=== PATIENT | female | born 1995 | race Caucasian/White ===

== ENCOUNTER 2017-07-16 18:40 | Inpatient (IN) | payer SELFPAY ==
[~2017-07-16] VITALS: Ht 162.6 cm; Wt 93.7 kg
[2017-07-16 19:40] LABS: URINE APPEARANCE CLOUDY (CLEAR); URINE BILIRUBIN NEG (NEG); URINE COLOR YELLOW; URINE EPITHELIAL CELL AUTO >30 /lpf (0-5); URINE NITRITE NEG (NEG); URINE SPECIFIC GRAVITY 1.026 (1.000-1.030); UROBILINOGEN NEG (NEG)
[2017-07-16 19:44] LABS: MANUAL MICROSCOPIC REQUIRED? NO; REVIEW REQ? YES
[2017-07-16 20:08] LABS: BASO % 0.2 %; BASO ABS # 0.02 K/uL (0-0.2); COMPLETE YES; EOS % 0.3 %; HEMATOCRIT 44.7 % (37-47); IG% 0.3 %; LYMPH % 27.2 %; LYMPH ABS # 2.71 K/uL (1.2-3.4); MEAN PLATELET VOLUME 10.2 fL (7.4-10.4); MONO % 4.7 %; NEUT % 67.3 %; PLATELET COUNT 366 K/uL (130-400); RED BLOOD COUNT 4.91 M/uL (4.2-5.4); WHITE BLOOD COUNT 9.96 K/uL (4.8-10.8)
[2017-07-16 20:21] LABS: BENZODIAZEPINE, URINE NEG (NEG); COCAINE,URINE NEG (NEG); PHENCYCLIDINE, URINE NEG (NEG)
[2017-07-16 20:25] LABS: ALT/SGPT 18 U/L (12-78); BLOOD UREA NITROGEN 10 mg/dl (7-18); BUN/CREATININE RATIO 11.7 (10-20); CALCIUM 9.6 mg/dl (8.5-10.1); CARBON DIOXIDE 23 mmol/L (21-32); CHLORIDE 109 mmol/L (98-107); CREATININE 0.86 mg/dl (0.60-1.20); GLUCOSE 92 mg/dl (70-99); POTASSIUM 2.8 mmol/L (3.5-5.1); SODIUM 141 mmol/L (136-145)
[2017-07-16 20:36] LABS: ALKALINE PHOSPHATASE 90 U/L (45-117); AST/SGOT 13 U/L (15-37)
[2017-07-16] MEDS ORDERED: POTASSIUM CHLORIDE 10 MEQ TABCR PO STA (20:55)
[2017-07-16] MEDS ORDERED: SODIUM CHLORIDE 0.9% 1000ML 1,000 ML IV STA ×2 (21:20→23:41)
[2017-07-16] MEDS ORDERED: POTASSIUM CHLORIDE 10 MEQ / 100ML WTR IV STA (23:12)
[2017-07-16] MEDS ORDERED: ONDANSETRON INJ 2 MG/ML 2 ML VIAL IV STA (23:28)
[2017-07-17] MEDS ORDERED: MAGNESIUM HYDROXIDE SUSP 30 ML UDC PO PRN (00:30)
[2017-07-17] MEDS ORDERED: ONDANSETRON INJ 2 MG/ML 2 ML VIAL IV PRN (00:30)
[2017-07-17] MEDS ORDERED: POLYETHYLENE (MIRALAX) 17 GM PACK PO PRN (00:30)
[2017-07-17] MEDS ORDERED: ALUMINUM/MAGNESIUM/SIMETH (MAALOX MAX) 30 ML UDC PO PRN (00:30)
--- NOTE | 2017-07-17 01:21 | EMERGENCY ROOM VISIT NOTE ---
History Report prepared by Geovanna: Khanh Muñoz Under the Supervision of: Dr. Bhavik Huynh M.D. First contact with patient: 18:47 Chief Complaint: OVERDOSE (INTENTIONAL) Stated Complaint: MHID History of Present Illness The patient is a 21 year old female who presents to the Emergency Room after an intentional overdose that occurred 1.5 hours ago. Case management states the patient's friend called the police. They report the patient admits to taking a large amount of medication in hopes she killed herself. The patient notes she has tried to kill herself before. She states she took half a bottle of store brand Excedrin. The patient reports she took a few pills at a time, and it occurred about 1.5 hours ago. She notes she has been depressed and said there is no particular trigger. The patient states she is not taking depression medication, and she does not have a psychiatrist. She reports she went to a grade school counselor last time she had ideations, but it did not help her. The patient notes this is the first time she has been to the hospital for her symptoms. She states she has been experiencing abdominal cramping, but she thought it was GERD from the marinara sauce she ate. 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 She notes her allergies have been acting up, and she is experiencing premenstrual symptoms. The patient states she has arthritis in her ankle and weak joints. Pt denies LOC, headache, visual changes, neck pain, chest pain, breathing difficulties, nausea, vomiting, abdominal pain, back pain, numbness, weakness, open wounds, active bleeding, or other complaints. Source of History: patient Onset: 1.5 hours ago Position: other (global) Quality: other (overdose) Timing: constant Associated Symptoms: + abdominal pain Review of Systems See HPI for pertinent positives and negatives. A total of ten systems were reviewed and were otherwise negative. Past Medical & Surgical Medical Problems: (1) Arthritis (2) Tylenol overdose Family History FH: arthritis Social History Smoking Status: Unknown if Ever Smoked Housing Status: lives with roommate Occupation Status: [employer] student Current/Historical Medications No Active Prescriptions or Reported Meds Allergies Coded Allergies: No Known Allergies (Unverified , 07/16/17) Physical Exam Vital Signs Date Time Temp Pulse Resp B/P (MAP) Pulse Ox O2 Delivery O2 Flow Rate FiO2 07/17/17 00:30 97 17 96 07/17/17 00:24 107 07/17/17 00:15 115 21 100 07/17/17 00:01 115/73 07/17/17 00:00 100 18 07/16/17 23:45 100 26 100 07/16/17 23:38 113/77 07/16/17 23:30 103 18 07/16/17 23:15 124 20 07/16/17 23:00 127 27 07/16/17 22:44 101 18 119/82 97 Room Air 07/16/17 20:28 109 07/16/17 20:12 107 18 120/83 100 Room Air 07/16/17 18:58 37.2 101 18 149/90 99 Room Air Physical Exam GENERAL: Awake, alert, well appearing, no distress HENT: Normocephalic, atraumatic. TM's normal. Oropharynx unremarkable. EYES: PERRL. EOMI. Normal conjunctiva. Sclera non-icteric. NECK: Supple. No nuchal rigidity. FROM. No JVD or bruit. RESPIRATORY: CTA CARDIAC: RRR. No murmur. ABDOMEN: Soft, non distended. No tenderness to palpation. No rebound or guarding. No masses. MUSCULOSKELETAL: Unremarkable. No edema. No discoloration. Gross motor strength symmetric. NEURO: Cranial nerves 2-12 grossly intact. Normal sensorium. No sensory or motor deficits noted. Speech normal. No pronator drift. SKIN: No rash or jaundice noted. LYMPH: No adenopathy. PSYCH: Depressed mood. Flat affect. Positive suicidal ideation. No homicidal ideation, hallucinations, or delusions. Medical Decision & Procedures Laboratory Results 07/16/17 19:54 Red Blood Count 4.91, Mean Corpuscular Volume 91.0, Mean Corpuscular Hemoglobin 31.0, Mean Corpuscular Hemoglobin Concent 34.0, Mean Platelet Volume 10.2, Neutrophils (%) (Auto) 67.3, Lymphocytes (%) (Auto) 27.2, Monocytes (%) (Auto) 4.7, Eosinophils (%) (Auto) 0.3, Basophils (%) (Auto) 0.2, Neutrophils # (Auto) 6.70, Lymphocytes # (Auto) 2.71, Monocytes # (Auto) 0.47, Eosinophils # (Auto) 0.03, Basophils # (Auto) 0.02 07/16/17 19:54 Test 07/16/17 18:50 07/16/17 19:54 07/16/17 22:03 07/17/17 00:29 Urine Color YELLOW Urine Appearance CLOUDY (CLEAR) Urine pH 7.0 (4.5-7.5) Urine Specific [place] 1.026 (1.000-1.030) Urine Protein NEG (NEG) Urine Glucose (UA) NEG (NEG) Urine Ketones NEG (NEG) Urine Occult Blood TRACE (NEG) Urine Nitrite NEG (NEG) Urine Bilirubin NEG (NEG) Urine Urobilinogen NEG (NEG) Urine Leukocyte Esterase LARGE (NEG) Urine WBC (Auto) >30 /hpf (0-5) Urine RBC (Auto) 0-4 /hpf (0-4) Urine Hyaline Casts (Auto) 0 /lpf (0-5) Urine Epithelial Cells (Auto) >30 /lpf (0-5) Urine Bacteria (Auto) 2+ (NEG) Urine Yeast (Auto) (NONE PRSENT) Urine Test NEG (NEG) Urine Opiates Screen NEG (NEG) Urine Methadone, Qualitative NEG (NEG) Urine Barbiturates NEG (NEG) Urine Phencyclidine (PCP) Level NEG (NEG) Ur Amphetamine/Methamphetamine NEG (NEG) MDMA (Ecstasy) Screen NEG (NEG) Urine Benzodiazepines Screen NEG (NEG) Urine Cocaine Metabolite NEG (NEG) Urine Marijuana (THC) POS (NEG) White Blood Count 9.96 K/uL (4.8-10.8) Red Blood Count 4.91 M/uL (4.2-5.4) Hemoglobin 15.2 g/dL (12.0-16.0) Hematocrit 44.7 % (37-47) Mean Corpuscular Volume 91.0 fL (80-100) Mean Corpuscular Hemoglobin 31.0 pg (25-34) Mean Corpuscular Hemoglobin Concent 34.0 g/dl (32-36) Platelet Count 366 K/uL (130-400) Mean Platelet Volume 10.2 fL (7.4-10.4) Neutrophils (%) (Auto) 67.3 % Lymphocytes (%) (Auto) 27.2 % Monocytes (%) (Auto) 4.7 % Eosinophils (%) (Auto) 0.3 % Basophils (%) (Auto) 0.2 % Neutrophils # (Auto) 6.70 K/uL (1.4-6.5) Lymphocytes # (Auto) 2.71 K/uL (1.2-3.4) Monocytes # (Auto) 0.47 K/uL (0.11-0.59) Eosinophils # (Auto) 0.03 K/uL (0-0.5) Basophils # (Auto) 0.02 K/uL (0-0.2) RDW Standard Deviation 41.3 fL (36.4-46.3) RDW Coefficient of Variation 12.4 % (11.5-14.5) Immature Granulocyte % (Auto) 0.3 % Immature Granulocyte # (Auto) 0.03 K/uL (0.00-0.02) Anion Gap 9.0 mmol/L (3-11) Est Creatinine Clear Calc Drug Dose 117.7 ml/min Estimated GFR () 113.5 Estimated GFR (Non- 97.9 BUN/Creatinine Ratio 11.7 (10-20) Calcium Level 9.6 mg/dl (8.5-10.1) Total Bilirubin 0.2 mg/dl (0.2-1) Direct Bilirubin < 0.1 mg/dl (0-0.2) Aspartate Amino Transf (AST/SGOT) 13 U/L (15-37) Alanine Aminotransferase (ALT/SGPT) 18 U/L (12-78) Alkaline Phosphatase 90 U/L (45-117) Total Protein 8.2 gm/dl (6.4-8.2) Albumin 3.7 gm/dl (3.4-5.0) Thyroid Stimulating Hormone (TSH) 1.380 uIu/ml (0.300-4.500) Ethyl Alcohol mg/dL < 3.0 mg/dl (0-3) Acetaminophen Level 47 ug/ml (10-30) Laboratory results reviewed by me Medications Administered Medications (Trade) Dose Ordered Sig/Hoang Route Start Time Stop Time Status Last Admin Dose Admin Potassium Chloride (Klor-Con M10) 20 meq NOW STAT PO 07/16/17 20:55 07/16/17 20:56 DC 07/16/17 21:08 20 MEQ Sodium Chloride 1,000 ml @ 999 mls/hr Q1H1M STAT IV 07/16/17 21:20 07/16/17 22:20 DC 07/16/17 21:20 999 MLS/HR Potassium Chloride (Kcl 10 Meq / Wtr) 10 meq NOW STAT IV 07/16/17 23:12 07/16/17 23:14 DC 07/16/17 23:38 10 MEQ Ondansetron HCl (Zofran Inj) 4 mg NOW STAT IV 07/16/17 23:28 07/16/17 23:29 DC 07/17/17 00:39 4 MG Sodium Chloride 1,000 ml @ 125 mls/hr Q8H STAT IV 07/16/17 23:41 07/17/17 07:40 07/17/17 00:06 125 MLS/HR ECG Indication: toxicologic Rate (beats per minute): 108 Rhythm: sinus tachycardia Findings: no acute ischemic change, other (Poor R-wave progression, normal interval) ED Course 1909: The patient was evaluated in room A07. A complete history and physical exam was performed. 5: Ordered Potassium Chloride 20meq PO 0: Ordered Sodium Chloride 1000 ml @ 999 mls/hr IV 2312: Ordered Potassium Chloride 10meq IV 2316: Upon reexamination, the patient was still having nausea and vomited. She states the nausea resolved after vomiting. I discussed the test results and treatment plan with her. The patient will be evaluated for further management. I discussed the patient's case with Poison Control [facility]. They suggested the patient be medically evaluated by the hospitalist. 2325: I discussed the patient's case with Dr. Davis, [facility] Hospitalist. The patient will be evaluated for further management. 2328: Ordered Ondansetron HCl 4mg IV 2341: Ordered Sodium Chloride 1000 ml @ 125 mls/hr IV Medical Decision Prior records/ancillary studies reviewed. Triage Nursing notes reviewed and agree them. The patient's history was concerning for possible psychiatric disturbance and intentional overdose. Differential diagnosis: Etiologies such as mood disorder, toxicologic, infection, hypoglycemia, electrolyte abnormalities, cardiac sources, intracerebral event, neurologic, as well as others were entertained. Physical examination: The physical examination was performed as above and was completely benign. No emergent medical pathologies were noted. ER treatment provided: Normal saline hydration Oral potassium The patient vomited. IV potassium 10 mEq IV Zofran IV normal saline hydration On reassessment the patient felt better. Diagnostic interpretation by me: The electrocardiogram was negative for pathologic change. The labs revealed an unremarkable CBC. Chemistry panel reveals hypokalemia. The patient's initial Tylenol level was mildly elevated. The 4 hour level was well below the cutoff for toxicity. The patient was very specific about her time of ingestion as she had the time documented on her text messaging. The patient's aspirin level was mildly elevated and the second check was slightly increased. Because of the hypokalemia, nausea and vomiting, and slight increase in the aspirin level the patient will need to be medically monitored for she can be medically cleared. Poison control was consulted. They recommended a bicarbonate drip if the aspirin level increases to 30. The patient was not given charcoal as she was having nausea and vomiting. Consultation: Consultation was made with the hospitalist service. The patient was evaluated in the Emergency Room for further management. Consults Time Called: 2310 Consulting Physician: Poison Control, [facility] Returned Call: [phone] I discussed the patient's case with Poison Control [facility]. They suggested the patient be medically evaluated by the hospitalist. Additional Consults: Time Called: 2317 Consulted Physician: Dr. Davis, [facility] Hospitalist Returned Call: [phone] Additional Comments: I discussed the patient's case with Dr. Davis [facility] Hospitalist. The patient will be evaluated for further management. Impression Primary Impression: Suicidal ideation Additional Impressions: Drug overdose, intentional Hypokalemia Scribe Attestation The scribe's documentation has been prepared under my direction and personally reviewed by me in its entirety. I confirm that the note above accurately reflects all work, treatment, procedures, and medical decision making performed by me. Departure Information Dispostion Being Evaluated By Hospitalist Prescriptions No Active Prescriptions or Reported Meds Patient Instructions My [facility] Problem Qualifiers
--- NOTE | 2017-07-17 01:25 | History and Physical ---
History & Physical Date & Time of Service: Jul 17, 2017 at 01:19 Chief Complaint: MHID Primary Care Physician: No Doctor, Assigned History of Present Illness Source: patient The patient is 21-year-old female who presented to the ED after an overdose of Excedrin. The patient states that she is been chronically depressed since grade school. She is currently [employer] student, and having lots of stress related to school. Last her she had very poor academic performance is currently on academic probation. 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 In addition she complains of multiple stressors back home in [place]. Her grandfather has very advanced Alzheimer's which is quite stressful to her the family. In addition her sister recently became estranged from the family and the to them previously a very close relationship, which is very distressing to the patient. Currently she lives in [place] [employer] and states she has a few friends locally, but is not essentially feel like she has a good amount of support. Dementia states that all these factors and she took approximately 20 tablets of Excedrin and that would end her life. She then called a friend who called EMS who brought her into the emergency department. She does state at this time that she does have some remorse with regards to taking the amount of tablets that she did. She is unsure who she would try this again if she were to go home. Patient denies having been formally diagnosed with any kind of mood disorder. She's never seen a psychiatrist or a therapist. States he has never been on any pharmacotherapy to manage her mood. In the ED the patient's acetaminophen and salicylate levels were measured. She does not meet criteria by nomogram standards, to receive N-acetylcysteine. Procedure has been contacted and recommend monitoring. The patient is being admitted for medical clearance in conjunction with evaluation for inpatient psychiatric management Past Medical/Surgical History Medical Problems: (1) Arthritis Status: Chronic Family History FH: arthritis Social History Smoking Status: Unknown if Ever Smoked Smokeless Tobacco Use: No Alcohol Use: occasionally Drug Use: marijuana Marital Status: single Housing status: lives with roommate Occupational Status: student Immunizations History of Influenza Vaccine: Unknown History of Tetanus Vaccine?: Unknown History of Pneumococcal: Unknown History of Hepatitis B Vaccine: Unknown Multi-Drug Resistant Organisms History of MDRO: No Allergies Coded Allergies: No Known Allergies (Unverified , 07/16/17) Home Medications No Active Prescriptions or Reported Meds Review of Systems A 10 point review of systems was negative unless stated above. Physical Exam Vital Signs Date Time Temp Pulse Resp B/P (MAP) Pulse Ox O2 Delivery O2 Flow Rate FiO2 07/17/17 00:30 97 17 96 07/17/17 00:24 107 07/17/17 00:15 115 21 100 07/17/17 00:01 115/73 07/17/17 00:00 100 18 07/16/17 23:45 100 26 100 07/16/17 23:38 113/77 07/16/17 23:30 103 18 07/16/17 23:15 124 20 07/16/17 23:00 127 27 07/16/17 22:44 101 18 119/82 97 Room Air 07/16/17 20:28 109 07/16/17 20:12 107 18 120/83 100 Room Air 07/16/17 18:58 37.2 101 18 149/90 99 Room Air General Appearance: WD/WN, + obese Head: normocephalic, atraumatic Eyes: normal inspection, EOMI ENT: hearing grossly normal, pharynx normal Neck: supple, no adenopathy, no JVD Respiratory/Chest: lungs clear, no respiratory distress Cardiovascular: regular rate, rhythm, no gallop, no murmur Abdomen/GI: normal bowel sounds, non tender, soft Back: no CVA tenderness, no muscle spasm Extremities/Musculoskelatal: no calf tenderness, no pedal edema Neurologic/Psych: alert, oriented x 3, + depressed affect (tearful) Diagnostics Laboratory Results Results Past 24 Hours Test 07/16/17 18:50 07/16/17 19:54 07/16/17 22:03 07/17/17 00:29 Range/Units Urine Color YELLOW Urine Appearance CLOUDY CLEAR Urine pH 7.0 4.5-7.5 Urine Specific [place] 1.026 1.000-1.030 Urine Protein NEG NEG Urine Glucose (UA) NEG NEG Urine Ketones NEG NEG Urine Occult Blood TRACE NEG Urine Nitrite NEG NEG Urine Bilirubin NEG NEG Urine Urobilinogen NEG NEG Urine Leukocyte Esterase LARGE NEG Urine WBC (Auto) >30 0-5 /hpf Urine RBC (Auto) 0-4 0-4 /hpf Urine Hyaline Casts (Auto) 0 0-5 /lpf Urine Epithelial Cells (Auto) >30 0-5 /lpf Urine Bacteria (Auto) 2+ NEG Urine Yeast (Auto) NONE PRSENT Urine Test NEG NEG Urine Opiates Screen NEG NEG Urine Methadone, Qualitative NEG NEG Urine Barbiturates NEG NEG Urine Phencyclidine (PCP) Level NEG NEG Ur Amphetamine/Methamphetamine NEG NEG MDMA (Ecstasy) Screen NEG NEG Urine Benzodiazepines Screen NEG NEG Urine Cocaine Metabolite NEG NEG Urine Marijuana (THC) POS NEG White Blood Count 9.96 4.8-10.8 K/uL Red Blood Count 4.91 4.2-5.4 M/uL Hemoglobin 15.2 12.0-16.0 g/dL Hematocrit 44.7 37-47 % Mean Corpuscular Volume 91.0 80-100 fL Mean Corpuscular Hemoglobin 31.0 25-34 pg Mean Corpuscular Hemoglobin Concent 34.0 32-36 g/dl Platelet Count 366 130-400 K/uL Mean Platelet Volume 10.2 7.4-10.4 fL Neutrophils (%) (Auto) 67.3 % Lymphocytes (%) (Auto) 27.2 % Monocytes (%) (Auto) 4.7 % Eosinophils (%) (Auto) 0.3 % Basophils (%) (Auto) 0.2 % Neutrophils # (Auto) 6.70 1.4-6.5 K/uL Lymphocytes # (Auto) 2.71 1.2-3.4 K/uL Monocytes # (Auto) 0.47 0.11-0.59 K/uL Eosinophils # (Auto) 0.03 0-0.5 K/uL Basophils # (Auto) 0.02 0-0.2 K/uL RDW Standard Deviation 41.3 36.4-46.3 fL RDW Coefficient of Variation 12.4 11.5-14.5 % Immature Granulocyte % (Auto) 0.3 % Immature Granulocyte # (Auto) 0.03 0.00-0.02 K/uL Sodium Level 141 136-145 mmol/L Potassium Level 2.8 3.5-5.1 mmol/L Chloride Level 109 98-107 mmol/L Carbon Dioxide Level 23 21-32 mmol/L Anion Gap 9.0 3-11 mmol/L Blood Urea Nitrogen 10 7-18 mg/dl Creatinine 0.86 0.60-1.20 mg/dl Est Creatinine Clear Calc Drug Dose 117.7 ml/min Estimated GFR () 113.5 Estimated GFR (Non- 97.9 BUN/Creatinine Ratio 11.7 10-20 Random Glucose 92 70-99 mg/dl Calcium Level 9.6 8.5-10.1 mg/dl Total Bilirubin 0.2 0.2-1 mg/dl Direct Bilirubin < 0.1 0-0.2 mg/dl Aspartate Amino Transf (AST/SGOT) 13 15-37 U/L Alanine Aminotransferase (ALT/SGPT) 18 12-78 U/L Alkaline Phosphatase 90 45-117 U/L Total Protein 8.2 6.4-8.2 gm/dl Albumin 3.7 3.4-5.0 gm/dl Thyroid Stimulating Hormone (TSH) 1.380 0.300-4.500 uIu/ml Salicylates Level 24.1 25.2 2.8-20 mg/dl Acetaminophen Level 60 47 10-30 ug/ml Ethyl Alcohol mg/dL < 3.0 0-3 mg/dl Impression Assessment and Plan 21-year-old female with chronic depressive disorder, and acute suicide attempt with acetaminophen/salicylate The patient is being admitted for medical management. Eventually the plan is for the patient to be medically cleared to that she can be treated in the mental health unit. She is currently here on a voluntary basis to form 302 in the chart. Our plan for her is as follows: Acetaminophen/Salicylate Overdose - Tylenol/Salicylate ingested at approximately 17:45 on 07/17/17 Acetaminophen - Below nomogram treatment threshold to start N-Acetylcysteine - Hydration with NSS + 20 KCL @ 200 ml/hr overnight Salicylate - Monitor clinically for late salicylate toxicity, which include occurrence of an anion gap acidosis - Patient's respiratory status stable at this point, which makes early salicylate poisoning unlikely - Per Poison control Check Salicylate level q 2 hours; needs Bicarb infusion if exceeds 30 Hypokalemia - 10 mEq KCl given in ED - Continue hydration overnight with NSS + 20 mEq KCl10 many cues IV KCl given in the ED - Continue hydration with normal saline +20 and he cues KCl Depression - Consult Mental Health - Patient is currently on warrant and requires medical clearance - Plan for possible admission to Mental Health Unit once Marijuana use - As noted in urine drug screen - Recommend cessation DVT Prophylaxis - SCD Knee, EVETTE Hose Code Status - Level I Full Code Disposition - Telemetry - Patient is currently admitted on a voluntary basis. The patient is waiting to be medically cleared and for possible inpatient psychiatric treatment Attending Addendum: I have physically seen and examined this patient, have directed the resident's medical activities, and agree with the H&P as noted above with the following exceptions as noted. The patient is awake, alert and oriented 3, normocephalic and atraumatic, lying in bed and in no acute distress. HEENT--PERRL, EOMI, mucous membranes and oropharynx dry. Neck--supple, no JVD or bruits, thyroid normal, trachea midline, no adenopathy. Heart--normal S1 and S2, no extra beats, no murmurs, rubs or gallops. Lungs--clear bilaterally with good air movement, no respiratory distress, no accessory muscle use. Abdomen--normal bowel sounds and soft, nontender and nondistended, no hernias or masses, no organomegaly and obese. Extremities--no cyanosis, clubbing or edema. There are good distal pulses b/l. Dermatologic--normal skin turgor, normal color, warm and dry, no abnormal lymph nodes, no rash. Neurologic--cranial nerves II through XII grossly intact. Rheumatologic--normal range of motion, nontender, muscles and joints. Psychiatric--depressed affect and tearful Assessment and Plan: Intentional Acetaminophen/salicylate overdose-- Admit to the telemetry unit for cardiac rhythm monitoring. Poison control does not recommend treatment with Acetadote. Check salicylate level every 2 hours, and to start bicarbonate infusion if level exceeds 30, per poison control. NSS with KCl 20 mEq at 200 ML's per hour to address mild hypokalemia and mild dehydration. Consult mental health regarding depression. Level of Care Telemetry Advanced Directives Existing Advance Directive: No Existing Living Will: No Existing Power of Forensic Locksmith: No Resuscitation Status FULL RESUSCITATION VTE Prophylaxis VTE Risk Assessment Done? Y/N: Yes Risk Level: Moderate Given or contraindicated: Treatment not indicated
[2017-07-17 02:54] VITALS: BP 122/77; PULSE 87; TEMP 36.7; O2SAT 96; Ht 162.6 cm; Wt 93.7 kg
[2017-07-17] MEDS: NSS + 20MEQ KCL 1000ML 1,000 ML IV SCH ×3 (03:06→13:13)
[2017-07-17 04:09] VITALS: BP 120/78; PULSE 96; TEMP 36.6; O2SAT 98
[2017-07-17 04:16] LABS: MEAN CELL VOLUME 90.1 fL (80-100); MEAN CORPUSCULAR HEMOGLOBIN 32.1 pg (25-34); MEAN CORPUSCULAR HGB CONC 35.6 g/dl (32-36); MEAN PLATELET VOLUME 10.2 fL (7.4-10.4); PLATELET COUNT 363 K/uL (130-400); RED BLOOD COUNT 4.33 M/uL (4.2-5.4); WHITE BLOOD COUNT 14.14 K/uL (4.8-10.8)
[2017-07-17 04:43] LABS: CALCIUM 8.6 mg/dl (8.5-10.1); CREATININE 0.68 mg/dl (0.60-1.20); POTASSIUM 3.3 mmol/L (3.5-5.1)
[2017-07-17 04:48] LABS: ALB/GLOB RATIO 0.9 (0.9-2)
[2017-07-17 08:00] VITALS: BP 111/73; PULSE 76; TEMP 36.6; O2SAT 100
[2017-07-17 12:00] VITALS: BP 127/84; PULSE 99; TEMP 36.9; O2SAT 99
--- NOTE | 2017-07-17 12:41 | Medical Student: BHU Only ---
Psychiatric Evaluation IDENTIFYING DATA: Reyna Angeles is a 21-year-old female [employer] Student who currently lives in [place]. Reyna Angeles was brought into the ED on a 302 warrant by the police. Information provided by the patient is considered to be reliable. CHIEF COMPLAINT: "I took half a bottle of Excedrin." HISTORY OF PRESENT ILLNESS: Last night, Reyna took 20 pills of Excedrin in a suicide attempt by overdose. Afterwards, she made contact with a friend and asked to be with them. However, her friend was with a [facility] vice president education, who was obligated to report Reyna's suicide attempt after being made aware of it. The police brought her into the ED on a 302 warrant. Reyna reports "being depressed her whole life" but denies any history of psychiatric treatment or therapy and therefore has no official diagnosis. When asked what triggered the overdose, Reyna described how "thing have been piling up." She reports psychosocial stress pertaining to her family. Her grandfather has dementia and her mother has to take care of him. Additionally, Reyna has a sister who she described as "trash." This sister has a son who was abusing codeine, which Reyna reported to her nephew's father. Her sister became very upset about Reyna's disclosure and has cut off all contact with the rest of her family. Additionally at school, she performed poorly last year and is currently on academic warning (status given to [employer] students who have less than a 2.0 GPA). She would like to declare her major as energy engineering but is unsure she can and feels like she is doing poorly this semester too. Risk of violence to self within the last 6 months: yes - third overdose attempt Risk of violence to others within the last 6 months: no CURRENT MEDICATIONS: Reported Home Medications Medications Dose Route/Sig Max Daily Dose Days Date Category No Active Prescriptions or Reported Medications Rx PAST PSYCHIATRIC HISTORY: Current outpatient mental health treatment: none Prior outpatient mental health treatment: met with school counselor in 7th grade but says the counselor told her to "think differently." Prior psychiatric hospitalizations: none. Prior medication trials: none Prior suicide attempts: two - attempted overdose on naproxen but said she only took "some pills" Access to weapons: does not possess guns PAST MEDICAL HISTORY: medical history: arthritis in left ankle from swimming competitively for 10 years surgical history: [for females: pregnancies, LMP, type of control] history of head injury: none history of seizure: none history of iv drug use: none ALLERGIES: NKDA FAMILY HISTORY: Mental Health: none aside from substance abuse (see below) Substance Abuse: nephew abuses codeine Suicide: none Medical history: DM - maternal grandfather, HTN - mother, colon cancer - maternal grandfather. SUBSTANCE USE HISTORY: Tobacco use hx: none Marijuana use hx: socially, reports using once every other week to month. Alcohol: socially - last drink in January PERSONAL HISTORY: Born: in [place] but was raised in [facility]. Siblings: one brother and two sisters, one of whom she described as "trash" because she is estranged from their family. Education: [employer] sophomore on academic probation. 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 She works for two hours on Thursday Relationship History: boyfriend from home - he visits every weekend. Children: none Spiritual Affiliation: mother is Muslim but Reyna is "not serious" about it Legal History: none Physical abuse history: none Emotional/psychological abuse history: none Sexual abuse history: none MENTAL STATUS EXAM: Appearance is that of a casually dressed female who appears her stated age. The patient is cooperative with the interview. Eye contact is good. Motor behavior is normal. Speech: volume, rate, and tone are all normal. Mood: "I kind of just wanna go home." Affect: congruent with mood, depressed Thought process: goal directed, linear, coherent, clear Thought content: denies SI, HI Perception: denies hallucinations Insight is estimated to be fair. Judgment is estimated to be fair. RISK ASSESSMENT: * Risk factors (select all that apply): , fall in social status ( undeclared major who is concerned about not being able to enter the energy engineering major since she is on academic probation and is not doing well in classes), lack of support network locally, and previous attempts. * Protective factors (select all that apply): Stable relationships (boyfriend comes to visit every weekend from [place]) DIAGNOSTIC IMPRESSION: Reyna is a 21 year old female who presented to the emergency room after an intentional overdose on Excedrin. She has a long-standing history of feeling depressed but has never had a formal diagnosis of major depressive disorder. She scored a 19/25 on her PHQ-9 and reports experiencing multiple vegetative symptoms of depression on more than half the days. DSM-V DIAGNOSIS: Major depressive disorder, recurrent episodes. RECOMMENDATIONS: 1. Major depressive disorder, recurrent episode a. Start on an SSRI such as Zoloft 25 mg. b. Participate in group and recreational therapy. c. Set up family meeting with boyfriend. 2. Tylenol overdose a. Suicide precautions will be maintained to help provide for patient safety while in the hospital. b. Discuss and initiate safety planning. c. Encourage disclosure to mother to utilize her as a support system and involve her in her care. 3. Aftercare Planning: a. We will make appointments with outside therapists and outpatient psychiatrists to manage her depression after discharge. Date of Service: Jul 17, 2017.
--- NOTE | 2017-07-17 13:09 | Psychiatric Consultation ---
Psychiatric Consultation Date of Service: Jul 17, 2017. Patient was seen, chart reviewed, mental status assessed. Denies SI currently but significant risk factors including prior ingestion, lack of local social supports, academic difficulties. Dx: major depressive disorder s/p Excedrin ingestion Plan: inpatient psych admit when medically cleared, discussed 201 vs 302, proposed treatment and estimated length of stay. Patient indicated she would be willing to sign 201 after initially stressing need to return to work. Discussed with Dr. Olsen. Liaison to facilitate transfer to 3 S when bed opens. 302 warrant will need dispositioned (declined) when she completes 201 later today. If patient becomes unwilling to sign, I would support 302 commitment. She remains on floor on 302 warrant at this time and should not be allowed to leave the facility AMA.
--- NOTE | 2017-07-17 14:45 | Discharge Instructions ---
Discharge Instructions Date of Service Jul 17, 2017. Admission Reason for Admission: Tylenol Overdose Discharge Discharge Diagnosis / Problem: tylenol overdose Discharge Goals Goal(s): Decrease discomfort, Improve function, Increase independence, Improve disease control, Learn about illness, Diagnostic testing, Therapeutic intervention, Prevent Disease Progression Activity Recommendations Activity Limitations: resume your previous activity Exercise/Sports Limitations: as tolerated . Instructions / Follow-Up Instructions / Follow-Up Patient to be discharged to mental health unit in [facility] No medication changes at this time Can go on regular diet Further evaluation per psychiatry team Current Hospital Diet Patient's current hospital diet: Regular Diet Discharge Diet Recommended Diet: Regular Diet Pending Studies Studies pending at discharge: no Medical Emergencies . Who to Call and When: Medical Emergencies: If at any time you feel your situation is an emergency, please call 911 immediately. . Non-Emergent Contact Non-Emergency issues call your: Primary Care Provider Call Non-Emergent contact if: you have a fever, you have any medication questions . . "Provider Documentation" section prepared by Mook Olsen. . VTE Core Measure Inpt VTE Proph given/why not?: Treatment not indicated
[2017-07-17 15:23] VITALS: BP 134/85; PULSE 98; TEMP 37.1; O2SAT 98
[2017-07-17 15:25] VITALS: BP 134/85; PULSE 98; TEMP 37.1; O2SAT 98
--- NOTE | 2017-07-17 15:39 | Discharge Summary ---
Discharge Summary Date of Service Jul 17, 2017. Discharge Summary Admission Date: Jul 17, 2017 at 00:30 Discharge Date: Jul 17, 2017 Discharge Disposition: Acute care mental health (Inpatient mental health) Principal Diagnosis: Suicide attempt, tylenol/salicylate overdose Consultations: Psychiatry Medication Reconciliation Medication Profile: No Active Prescriptions or Reported Meds Discharge Exam Review of Systems: Constitutional: + fatigue, No fever, No chills, No sweats, No weakness ENT: No hearing loss, No unusual epistaxis, No nasal symptoms, No sore throat Respiratory: No cough, No sputum, No wheezing, No shortness of breath Cardiovascular: No chest pain, No orthopnea, No PND, No edema Abdomen: No pain, No nausea, No vomiting, No diarrhea Musculoskeletal: No joint pain, No muscle pain, No swelling, No calf pain Genitourinary - Female: No dysuria, No urinary frequency, No urinary urgency , No urinary incontinence Neurologic: No memory loss, No paralysis, No weakness, No numbness/tingling Psychiatric: + depression symptoms, + substance abuse, No anhedonism, No anxiety, No insomnia Endocrine: No fatigue, No excessive thirst Integumentary: No rash, No itch Physical Exam: General Appearance: WD/WN, no apparent distress Eyes: normal inspection, PERRL, EOMI, sclerae normal Neck: supple, no adenopathy, thyroid normal, no JVD Respiratory/Chest: chest non-tender, lungs clear, normal breath sounds, no respiratory distress Cardiovascular: regular rate, rhythm, no edema, no gallop, no JVD Abdomen / GI: normal bowel sounds, non tender, soft, no organomegaly Extremities: normal inspection, no calf tenderness, normal capillary refill , no pedal edema Neurologic/Psychiatric: no motor/sensory deficits, alert, normal mood/affect , oriented x 3 Skin: normal color, warm/dry, no rash Lymphatic: no adenopathy Hospital Course 21-year-old female with chronic depressive disorder, and acute suicide attempt with acetaminophen/salicylate The patient is being admitted for medical management. Eventually the plan is for the patient to be medically cleared to that she can be treated in the mental health unit. She is currently here on a voluntary basis to form 302 in the chart. Acetaminophen/Salicylate Overdose - Tylenol/Salicylate ingested at approximately 17:45 on 07/17/17, Below nomogram treatment threshold to start N-Acetylcysteine - Tylenol levels 60 --> 47 - Salicylate levels 24--> 25--> 22 - Stable at this time for discharge to inpatient psychiatry, no active suicide ideations currently, pt will discharge to inpatient unit on voluntary basis Hypokalemia - Resolved and replaced Depression - Consult Mental Health - Patient is currently on warrant Marijuana use - As noted in urine drug screen - Recommend cessation DVT Prophylaxis - SCD Knee, EVETTE Hose Code Status - Level I Full Code Total Time Spent: Greater than 30 minutes This includes examination of the patient, discharge planning, medication reconciliation, and communication with other providers. Discharge Instructions Please refer to the electronic Patient Visit Report (Discharge Instructions) for additional information.
[2017-07-21] MEDS ORDERED: ZLF50 PO (08:38)
== END 2017-07-17 16:28 | disposition home or self-care (01) | DRG 918 ==
LOC: C.EDA 18:43 → C.2T 07-17 00:30 → ENRESERV 07-17 01:41
PROVIDERS: ADMIT Student in an Organized Health Care Education/Training Program; ATTEND Hospitalist
DX: T39.1X2A Poisoning by 4-Aminophenol derivatives, intentional self-harm, initial encounter (principal); R45.851 Suicidal ideations; E87.6 Hypokalemia; M19.90 Unspecified osteoarthritis, unspecified site; F32.9 Major depressive disorder, single episode, unspecified; F12.10 Cannabis abuse, uncomplicated

== ENCOUNTER 2017-07-17 16:32 | Inpatient (IN) | payer SELFPAY ==
[~2017-07-17] VITALS: Ht 162.6 cm; Wt 93.7 kg
[2017-07-17] MEDS ORDERED: NURSING VERBAL MED ORDER ONE (16:45)
[2017-07-17 16:53] VITALS: BP 126/82; PULSE 88; TEMP 37; BMI 35.5
[2017-07-17] MEDS ORDERED: BISMUTH SUBSALICYLATE PER ML OMNICELL CHARGE PO PRN (17:30)
[2017-07-17] MEDS ORDERED: SODIUM CHLORIDE 0.65% NA SOLN 45 ML (OCEAN) PRN (17:30)
[2017-07-17] MEDS ORDERED: hydrOXYzine HCL 25 MG TAB PO PRN ×2 (17:30)
[2017-07-17] MEDS ORDERED: ACETAMINOPHEN 325 MG TAB PO PRN (17:30)
[2017-07-17] MEDS ORDERED: ALUMINUM/MAGNESIUM SUSP 30 ML UDC PO PRN (17:30)
[2017-07-17] MEDS ORDERED: MAGNESIUM HYDROXIDE SUSP 30 ML UDC PO PRN (17:30)
--- NOTE | 2017-07-17 21:44 | Psychiatric History & Physical ---
History Date of Service Jul 17, 2017. 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 Reyna Angeles was admitted on a 201 voluntary commitment. Patient is admitted from transfer from the medical floor. The patient was brought to the ED by the police the evening prior to admission on a 302 warrant. Information provided by the patient is considered to be reliable. Chief Complaint "I really want to get to work". History of Present Illness Last night Reyna took 20 pills of Excedrin in a suicide attempt. Afterwards, she contacted a friend who happened to be with a dorm residential construction instructor who then reported the attempt to the campus police. Acetaminophen level peaked at 60 and she did not require mucomyst but she was admittedly to telemetry overnight. Reyna reports depressive symptoms since middle school but denies any regular treatment. She reports feeling stressed and overwhelmed, particularly due to family stressors. Her grandfather has dementia and her mother is his primary caregiver. Reyna also has a sister who she described as "trash." Her sister's son abuses codeine and Reyna told the boy's father. This led to her sister cutting off all contact with the rest of her family. She performed poorly last year in college and is currently on academic probation. 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 Patient scored 19 on the PHQ-9 endorsing nearly every day for multiple vegetative symptoms of depression. Past Psychiatric History Current OP Treatment: no current treatment Prior OP Treatment: therapist (7th grade, didn't find helpful) Prior Psych Hospitalizations: none Access to a Gun: No Suicide Attempts: Yes (1 prior OD on Ibuprofen in middle school, no treatment) Past Medication Trials denied Past Medical/Surgical History History of Concussion/Seizure: No (1) Tylenol overdose (2) Arthritis Allergies Allergies: Coded Allergies: No Known Allergies (Unverified , 07/16/17) Home Medications No Active Prescriptions or Reported Meds Family History FH: arthritis History of Suicide: No History of Substance Abuse: Yes (nephew as above) Psychiatric History: No Alcohol Use Alcohol Use In Past 12 Months: Yes (monthly or less; socially only; does not drink until intoxication) AUDIT Total Score: 1 Smoking Use Smoking Status: Never Smoker Substance History occasional MJ Personal History Childhood: born in [place], moved with family (bro/sis) to [facility] Education: graduated from high school, started college ([employer] sophomore) 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 Examination Physical Examination A physical exam was performed on the medical floor prior to admission to the unit by Dr. Curiel. I accept that physical and Dr. Olsen's assessment today as correct/medical clearance for the inpatient physical exam. Vital Signs Vital Signs Past 12 Hours Date Time Temp Pulse Resp B/P (MAP) Pulse Ox O2 Delivery O2 Flow Rate FiO2 07/17/17 16:53 37.0 88 18 126/82 Laboratory Results Test 07/16/17 18:50 07/16/17 19:54 07/16/17 22:03 07/17/17 00:29 Urine Color YELLOW Urine Appearance CLOUDY Urine pH 7.0 Urine Specific [place] 1.026 Urine Protein NEG Urine Glucose (UA) NEG Urine Ketones NEG Urine Occult Blood TRACE H Urine Nitrite NEG Urine Bilirubin NEG Urine Urobilinogen NEG Urine Leukocyte Esterase LARGE H Urine WBC (Auto) >30 H Urine RBC (Auto) 0-4 Urine Hyaline Casts (Auto) 0 Urine Epithelial Cells (Auto) >30 H Urine Bacteria (Auto) 2+ H Urine Yeast (Auto) Urine Test NEG Urine Opiates Screen NEG Urine Methadone, Qualitative NEG Urine Barbiturates NEG Urine Phencyclidine (PCP) Level NEG Ur Amphetamine/Methamphetamine NEG MDMA (Ecstasy) Screen NEG Urine Benzodiazepines Screen NEG Urine Cocaine Metabolite NEG Urine Marijuana (THC) POS H Urine Marijuana (THC Carboxy Acid) Pending White Blood Count 9.96 Red Blood Count 4.91 Hemoglobin 15.2 Hematocrit 44.7 Mean Corpuscular Volume 91.0 Mean Corpuscular Hemoglobin 31.0 Mean Corpuscular Hemoglobin Concent 34.0 Platelet Count 366 Mean Platelet Volume 10.2 Neutrophils (%) (Auto) 67.3 Lymphocytes (%) (Auto) 27.2 Monocytes (%) (Auto) 4.7 Eosinophils (%) (Auto) 0.3 Basophils (%) (Auto) 0.2 Neutrophils # (Auto) 6.70 H Lymphocytes # (Auto) 2.71 Monocytes # (Auto) 0.47 Eosinophils # (Auto) 0.03 Basophils # (Auto) 0.02 RDW Standard Deviation 41.3 RDW Coefficient of Variation 12.4 Immature Granulocyte % (Auto) 0.3 Immature Granulocyte # (Auto) 0.03 H Sodium Level 141 Potassium Level 2.8 L Chloride Level 109 H Carbon Dioxide Level 23 Anion Gap 9.0 Blood Urea Nitrogen 10 Creatinine 0.86 Est Creatinine Clear Calc Drug Dose 117.7 Estimated GFR () 113.5 Estimated GFR (Non- 97.9 BUN/Creatinine Ratio 11.7 Random Glucose 92 Calcium Level 9.6 Total Bilirubin 0.2 Direct Bilirubin < 0.1 Aspartate Amino Transferase (AST) 13 L Alanine Aminotransferase (ALT) 18 Alkaline Phosphatase 90 Total Protein 8.2 Albumin 3.7 Thyroid Stimulating Hormone (TSH) 1.380 Salicylates Level 24.1 H 25.2 H 22.7 H Acetaminophen Level 60 H 47 H Ethyl Alcohol mg/dL < 3.0 Test 07/17/17 04:01 White Blood Count 14.14 H Red Blood Count 4.33 Hemoglobin 13.9 Hematocrit 39.0 Mean Corpuscular Volume 90.1 Mean Corpuscular Hemoglobin 32.1 Mean Corpuscular Hemoglobin Concent 35.6 RDW Standard Deviation 40.9 RDW Coefficient of Variation 12.3 Platelet Count 363 Mean Platelet Volume 10.2 Sodium Level 138 Potassium Level 3.3 #L Chloride Level 109 H Carbon Dioxide Level 22 Anion Gap 7.0 Blood Urea Nitrogen 8 Creatinine 0.68 Est Creatinine Clear Calc Drug Dose 147.5 Estimated GFR () 147.0 Estimated GFR (Non- 126.8 BUN/Creatinine Ratio 12.0 Random Glucose 97 Calcium Level 8.6 Total Bilirubin 0.3 Aspartate Amino Transferase (AST) 11 L Alanine Aminotransferase (ALT) 22 Alkaline Phosphatase 77 Total Protein 7.3 Albumin 3.4 Globulin 3.9 Albumin/Globulin Ratio 0.9 Mental Examination During interview pt is: alert and oriented Appearance: appropriately dressed, appropriately groomed Eye contact is: fair Motor behavior is: no abnormal motor movements Speech: normal in rate, rhythm & volume Affect: depressed Mood is: depressed Thought process: goal directed, clear, coherent Thought content: reality based without delusions Suicidal thought are: denied Homicidal thoughts are: denied Hallucinations: denies auditory, denies visual Cognition: memory grossly intact, attention grossly intact, language grossly intact Intelligence estimated to be: consistent with level of education Insight: limited Judgement: limited Impression / Recommendations Bharath Orellana is a 21-year-old female with a history of untreated depression who presents s/p Excedrin OD. There is no history of dami. 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 competitively for 10 years) Needs: resume outpatient therapy, medication trial Risk Factors Assessment : Yes /single/: Yes Higher / Fall in social status: Yes Access to guns: No Substance use disorders: No Previous attempt: Yes Family history of suicide: No Previous psychiatric stay: No Protective Factors Assessment Employed: Yes Recommendations (1) Major depressive disorder, recurrent episode with anxious distress 07/17-- The patient is admitted to [facility] ([facility] inpatient mental health unit) on q 15 min checks (behavioral with suicide precautions) for safety. The patient will participate in group, recreational and milieu therapies and will be offered additional individual and family sessions as clinically appropriate. Defer SSRI start/discussion until tomorrow. CPT Code Initial Hospital Care: [id number]
[2017-07-17 23:21] VITALS: Ht 162.6 cm; Wt 93.7 kg
[2017-07-18 06:38] VITALS: BP_SYST 110; BP_SYST 125; BP_DIAS 68; BP_DIAS 81; PULSE 94; TEMP 36.9
--- NOTE | 2017-07-18 09:48 | Psychiatric Progress Notes ---
Progress Note Date of Service Jul 18, 2017. 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 Reyna Angeles was admitted on a 201 voluntary commitment. Patient is admitted from transfer from the medical floor. The patient was brought to the ED by the police the evening prior to admission on a 302 warrant. Chief Complaint "I was so depressed and stressed out, couldn't think clearly". Subjective Patient was seen & assessed interval progress reviewed with Nursing. Staff report she reported upset stomach last night, and got Maalox. Today, she states that her mood is better, which she attributes to sleeping better last night, stating she had difficulty sleeping on the medical floor. She reports good appetite, but states she does not really like the hospital food. She denies suicidal thoughts today, stating that she regrets her suicide attempt. She processes some of her stressors, including difficulties academically, and is on academic probation, and limited supports locally. She is refusing contact with her mother, stating that her mother is already stressed out and she does not want to add to it. She was thinking of telling her mother about her hospitalization when she goes home to celebrate her birthday in a few weeks , stating that she could then tell her mother that "everything's okay, I've taken care of it," and her mother wouldn't be as stressed. She has support from her boyfriend, who lives in [place], but will be visiting her this weekend, as well as her roommate and 1 friend here at [employer]. She is unwilling to consider a family meeting with her mother, but would like to have one with her boyfriend. She has never had treatment for her depression before, but has considered taking an antidepressant, and would like to start one while here. She denies any further physical effects from her overdose. Sleep Information Total Hours of Sleep: 6.75 Meal Information Percent of Dinner Consumed: 100 Mental Status Exam During interview pt is: alert and oriented, cooperative Appearance: appropriately dressed, appropriately groomed, disheveled, other ( overweight, multiple ear piercings, glasses) Eye contact is: good Motor behavior is: steady gait & station, no abnormal motor movements Speech: normal in rate, rhythm & volume Affect: depressed, constricted Mood is: other ("a little better") Thought process: goal directed, clear, coherent Thought content: reality based without delusions Suicidal thought are: denied (but admits she overdosed in a suicide attempt prior to admission) Homicidal thoughts are: denied Hallucinations: denies auditory, denies visual Cognition: memory grossly intact, attention grossly intact, language grossly intact Intelligence estimated to be: consistent with level of education Insight: limited Judgement: limited Impression Reyna is a 21-year-old female with a history of untreated depression who presents s/p intentional Excedrin OD in a suicide attempt. She has never had mental health treatment in the past, despite a history of 2 previous intentional overdoses and self injury by cutting. She would benefit from antidepressant medication, therapy, and referrals for outpatient care. She requires inpatient treatment at this time due to the risk of self-harm and suicide if discharged prematurely. Plan (1) Major depressive disorder, recurrent episode with anxious distress 07/17-- The patient is admitted to [facility] ([facility] mental [facility]) on q 15 min checks (behavioral with suicide precautions) for safety. The patient will participate in group, recreational and milieu therapies and will be offered additional individual and family sessions as clinically appropriate. Defer SSRI start/discussion until tomorrow. 07/18 -Discussed diagnosis and treatment options, including antidepressant medication , behavioral changes (focus on sleep, exercise, good nutrition, avoiding drugs and alcohol, and utilizing her support system) and therapy. She has been reluctant to try therapy as she had a bad experience with it in grade school, but is willing to consider it at this point. Discussed trial of sertraline, reviewed risks, benefits, and common side effects, and gave her an up-to-date patient handout on the medication. We'll start 25 mg tonight, as she would like to take it at bedtime as this is when she takes her oral contraceptive, and can increase to 50 mg tomorrow if tolerated well. -She is refusing to involve her mother in treatment, not wanting to stress her out. Encouraged her to reconsider this. She would like to have a meeting with her boyfriend, who is visiting today. Will ask staff to schedule a meeting with the delinquency prevention social worker for Thursday. -Will need to meet with the delinquency prevention social worker on Thursday to coordinate with the [employer], and will need referrals for outpatient therapy and psychiatric follow-up. She does not have insurance, so this may need to be through [facility]. (2) Tylenol overdose Intentional Excedrin OD in suicide attempt- treated on medical floor. 07/18 - discussed role of safety planning, and encouraged the patient to start work on this. 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) Needs: resume outpatient therapy, medication trial Risk Factors Assessment : Yes /single/: Yes Higher / Fall in social status: Yes Health problems: No Mental Health Diagnoses: Yes Substance use disorders: No Previous attempt: Yes Family history of suicide: No Previous psychiatric stay: No Protective Factors Assessment : No Responsible for young children: No Employed: Yes Stable relationships: Yes Good rapport with provider: No Data Vital Signs Last 24 Hrs: Date Time Temp Pulse Resp B/P (MAP) Pulse Ox O2 Delivery O2 Flow Rate FiO2 07/18/17 06:38 36.9 94 16 110/68 94 125/81 07/17/17 16:53 37.0 88 18 126/82 Meds Administered Last 24 Hrs: Meds Administered (Past 24Hrs) Medications (Trade) Dose Ordered Sig/Hoang Route Start Time Stop Time Status Last Admin Dose Admin Al Hydroxide/Mg Hydroxide (Maalox Susp) 30 ml Q4H PRN PO 07/17/17 17:30 08/16/17 17:29 07/17/17 18:34 30 ML
[2017-07-18] MEDS: SERTRALINE HCL 50 MG TAB PO SCH (22:18)
[2017-07-19 06:53] VITALS: BP_SYST 118; BP_SYST 121; BP_DIAS 74; BP_DIAS 79; PULSE 101; PULSE 79; TEMP 36.7
--- NOTE | 2017-07-19 07:56 | Psychiatric Progress Notes ---
Progress Note Date of Service Jul 19, 2017. 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 Reyna Angeles was admitted on a 201 voluntary commitment. Patient is admitted from transfer from the medical floor. The patient was brought to the ED by the police the evening prior to admission on a 302 warrant. Chief Complaint "A little better". Subjective Patient was seen & assessed interval progress reviewed with Nursing. She reports she is feeling more comfortable on the unit, and has been talking with peers and feels she is getting good support. She denies side effects to sertraline after one dose. Sleep was disrupted by ankle pain, which is chronic due to arthritis. Appetite is good, and denies further sequelae from OD. She denies recurrence of suicidal thoughts, and says mood has improved to an 8 or 9 out of 10. She thinks her mood has improved drastically because she is away from stressors, and is around other people who are supportive. She had a good visit from her boyfriend and a meeting was scheduled with him for tomorrow. She continues to refuse involvement of her parents. She says her roommate is "very judgmental sometimes," so sometimes she doesn't want to talk to her about her problems. Her roommate doesn't know where she is, hasn't seen her since night, and has not tried to contact her, which makes her feel bad. The one other friend she has locally has not tried to contact her either, and she is disappointed by this. She has no other local supports, and has not spoken to her parents since admission. She does not plan on contacting her parents, and wants to wait to tell them in person about her hospitalization in a few weeks. She talks at length about her interpersonal difficulties with her roommate, whom she describes as somewhat insensitive. She states that she visits with her boyfriend every weekend. We discussed the concept of a safety plan, and she was encouraged to start working on this. 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 She believes that her father was affected by his time serving in the [place] and contracted some sort of ailments that was then passed on to her and her siblings, saying that they all get odd rashes and that her siblings tested positive for Lyme disease, "even though they never had it." Sleep Information Total Hours of Sleep: 6.50 Meal Information Percent of Breakfast Consumed: 100 Percent of Lunch Consumed: 80 Percent of Dinner Consumed: 75 Mental Status Exam During interview pt is: alert and oriented, cooperative Appearance: appropriately dressed, appropriately groomed, disheveled, other ( overweight, multiple ear piercings, glasses) Eye contact is: good Motor behavior is: steady gait & station, no abnormal motor movements Speech: loud, other Affect: other (depressed, but reactive and appropriate) Mood is: other ("better") Thought process: goal directed, clear, coherent Thought content: reality based without delusions Suicidal thought are: denied (but admits she overdosed in a suicide attempt prior to admission) Homicidal thoughts are: denied Hallucinations: denies auditory, denies visual Cognition: memory grossly intact, attention grossly intact, language grossly intact Intelligence estimated to be: consistent with level of education Insight: limited Judgement: limited Impression Reyna is a 21-year-old female with a history of untreated depression who presents s/p intentional Excedrin OD in a suicide attempt. She has never had mental health treatment in the past, despite a history of 2 previous intentional overdoses and self injury by cutting. She would benefit from antidepressant medication, therapy, and referrals for outpatient care. She requires inpatient treatment at this time due to the risk of self-harm and suicide if discharged prematurely. She is refusing contact with her parents, and has no supports locally, and no outpatient providers. Plan (1) Major depressive disorder, recurrent episode with anxious distress 07/17-- The patient is admitted to [facility] ([facility] mental health [facility]) on q 15 min checks (behavioral with suicide precautions) for safety. The patient will participate in group, recreational and milieu therapies and will be offered additional individual and family sessions as clinically appropriate. Defer SSRI start/discussion until tomorrow. 07/18 -Discussed diagnosis and treatment options, including antidepressant medication , behavioral changes (focus on sleep, exercise, good nutrition, avoiding drugs and alcohol, and utilizing her support system) and therapy. She has been reluctant to try therapy as she had a bad experience with it in grade school, but is willing to consider it at this point. Discussed trial of sertraline, reviewed risks, benefits, and common side effects, and gave her an up-to-date patient handout on the medication. We'll start 25 mg tonight, as she would like to take it at bedtime as this is when she takes her oral contraceptive, and can increase to 50 mg tomorrow if tolerated well. -She is refusing to involve her mother in treatment, not wanting to stress her out. Encouraged her to reconsider this. She would like to have a meeting with her boyfriend, who is visiting today. Will ask staff to schedule a meeting with the social insurance administrator for Thursday. -Will need to meet with the social insurance administrator on Thursday to coordinate with the [facility], and will need referrals for outpatient therapy and psychiatric follow-up. She does not have insurance, so this may need to be through [facility]. 07/19 -Increase sertraline to 50 mg at bedtime tonight. -Patient continues to refuse involvement of her parents, but has a meeting scheduled with her boyfriend of the social insurance administrator for tomorrow.. -Encouraged her to work on her safety plan, including ways to cope with stress, and encouraged to involve her support network, which she has been reluctant to do. (2) Tylenol overdose Intentional Excedrin OD in suicide attempt- treated on medical floor. 07/18 - discussed role of safety planning, and encouraged the patient to start work on this. 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) Needs: resume outpatient therapy, medication trial Risk Factors Assessment : Yes /single/: Yes Higher / Fall in social status: Yes Health problems: No Mental Health Diagnoses: Yes Substance use disorders: No Previous attempt: Yes Family history of suicide: No Previous psychiatric stay: No Protective Factors Assessment : No Responsible for young children: No Employed: Yes Stable relationships: Yes Good rapport with provider: No Data Vital Signs Last 24 Hrs: Date Time Temp Pulse Resp B/P (MAP) Pulse Ox O2 Delivery O2 Flow Rate FiO2 07/19/17 06:53 36.7 79 16 118/74 101 121/79 Meds Administered Last 24 Hrs: Meds Administered (Past 24Hrs) Medications (Trade) Dose Ordered Sig/Hoang Route Start Time Stop Time Status Last Admin Dose Admin Al Hydroxide/Mg Hydroxide (Maalox Susp) 30 ml Q4H PRN PO 07/17/17 17:30 08/16/17 17:29 07/17/17 18:34 30 ML Sertraline HCl (Zoloft Tab) 25 mg Taper HS PO 07/18/17 22:00 08/16/17 21:59 07/18/17 22:18 25 MG
[2017-07-19] MEDS ORDERED: NURSING VERBAL MED ORDER ONE (18:15)
[2017-07-19] MEDS: SPRINTEC PO SCH (22:00)
[2017-07-19] MEDS: SERTRALINE HCL 50 MG TAB PO SCH (22:58)
[2017-07-20 06:53] VITALS: BP_SYST 118; BP_SYST 121; BP_DIAS 74; BP_DIAS 82; PULSE 105; PULSE 88; TEMP 36.7
--- NOTE | 2017-07-20 12:13 | Psychiatric Progress Notes ---
Progress Note Date of Service Jul 20, 2017. 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 Reyna Angeles was admitted on a 201 voluntary commitment. Patient is admitted from transfer from the medical floor. The patient was brought to the ED by the police the evening prior to admission on a 302 warrant. Chief Complaint "Pretty good". Subjective Patient was seen & assessed interval progress reviewed with Treatment Team. Staff report she is going to groups and participating. The patient reports mood is improving. She is working on her discharge plans. She called her sister and told her "a brief summary" of her hospitalization, but still has not told her mother, and continues to refuse contact with her, saying she wants to tell her "later" and doesn't want to stress her out. She feels "like a burden, don't want people to have to deal with my problems." She had a meeting with her boyfriend today, and they discussed her lack of support here, and concerns about that. She talked about her self harming, which dates back to elementary school, when she was bullied. She denies access to guns or razor blades at home. She is hoping to be able to be seen at [facility], as she doesn't have insurance so can't get providers in the community. Today, she says she was very anxious about talking to her sister last night, and is still very worried about telling her mother, saying she wants to send her a text message first, then tell her what happened, but only after she can tell her "I've taken care of it all." She admits her family all try to manage things on their own and the feeling that asking for help is weakness. She recognizes that this is part of her problem. Mood is "ok," a little lower today due to rainy weather and ankle pain. Sleep and appetite are good. Denies side effects to medication. Sleep Information Total Hours of Sleep: 6.25 Meal Information Percent of Breakfast Consumed: 90 Percent of Lunch Consumed: 50 Percent of Dinner Consumed: 75 Mental Status Exam During interview pt is: alert and oriented, cooperative Appearance: appropriately dressed, appropriately groomed, disheveled, other ( overweight, multiple ear piercings, glasses) Eye contact is: good Motor behavior is: steady gait & station, no abnormal motor movements Speech: loud Affect: other (depressed, but reactive and appropriate) Mood is: other ("okay") Thought process: goal directed, clear, coherent Thought content: reality based without delusions Suicidal thought are: denied (but admits she overdosed in a suicide attempt prior to admission) Homicidal thoughts are: denied Hallucinations: denies auditory, denies visual Cognition: memory grossly intact, attention grossly intact, language grossly intact Intelligence estimated to be: consistent with level of education Insight: limited Judgement: limited Impression Reyna is a 21-year-old female with a history of untreated depression who presents s/p intentional Excedrin OD in a suicide attempt. She has never had mental health treatment in the past, despite a history of 2 previous intentional overdoses and self injury by cutting. She would benefit from antidepressant medication, therapy, and referrals for outpatient care. She requires inpatient treatment at this time due to the risk of self-harm and suicide if discharged prematurely. She is refusing contact with her parents, and has no supports locally, and no outpatient providers. Plan (1) Major depressive disorder, recurrent episode with anxious distress 07/17-- The patient is admitted to [facility] ([facility] mental health unit) on q 15 min checks (behavioral with suicide precautions) for safety. The patient will participate in group, recreational and milieu therapies and will be offered additional individual and family sessions as clinically appropriate. Defer SSRI start/discussion until tomorrow. 07/18 -Discussed diagnosis and treatment options, including antidepressant medication , behavioral changes (focus on sleep, exercise, good nutrition, avoiding drugs and alcohol, and utilizing her support system) and therapy. She has been reluctant to try therapy as she had a bad experience with it in grade school, but is willing to consider it at this point. Discussed trial of sertraline, reviewed risks, benefits, and common side effects, and gave her an up-to-date patient handout on the medication. We'll start 25 mg tonight, as she would like to take it at bedtime as this is when she takes her oral contraceptive, and can increase to 50 mg tomorrow if tolerated well. -She is refusing to involve her mother in treatment, not wanting to stress her out. Encouraged her to reconsider this. She would like to have a meeting with her boyfriend, who is visiting today. Will ask staff to schedule a meeting with the social media specialist for Thursday. -Will need to meet with the social media specialist on Thursday to coordinate with the [facility], and will need referrals for outpatient therapy and psychiatric follow-up. She does not have insurance, so this may need to be through [facility]. 07/19 -Increase sertraline to 50 mg at bedtime tonight. -Patient continues to refuse involvement of her parents, but has a meeting scheduled with her boyfriend of the social media specialist for tomorrow.. -Encouraged her to work on her safety plan, including ways to cope with stress, and encouraged to involve her support network, which she has been reluctant to do. 07/20 -Increase sertraline to 75mg qhs to target mood and anxiety. -Family meeting held with boyfriend. Continues to refuse involvement of mother. -Coordinate with [facility], and refer to [facility] for aftercare. -Work on discharge plans/safety plan. (2) Tylenol overdose Intentional Excedrin OD in suicide attempt- treated on medical floor. 07/18 - discussed role of safety planning, and encouraged the patient to start work on this. 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) Needs: resume outpatient therapy, medication trial Risk Factors Assessment : Yes /single/: Yes Higher / Fall in social status: Yes Health problems: No Mental Health Diagnoses: Yes Substance use disorders: No Previous attempt: Yes Family history of suicide: No Previous psychiatric stay: No Hopelessness: No Smoker: No Protective Factors Assessment : No Responsible for young children: No Employed: Yes Stable relationships: Yes Supportive family: No Good rapport with provider: No Data Vital Signs Last 24 Hrs: Date Time Temp Pulse Resp B/P (MAP) Pulse Ox O2 Delivery O2 Flow Rate FiO2 07/20/17 06:53 36.7 88 16 118/74 105 121/82 Meds Administered Last 24 Hrs: Meds Administered (Past 24Hrs) Medications (Trade) Dose Ordered Sig/Hoang Route Start Time Stop Time Status Last Admin Dose Admin Sertraline HCl (Zoloft Tab) 50 mg Taper HS PO 07/18/17 22:00 08/16/17 21:59 07/19/17 22:58 50 MG Non-Formulary Medication (Non-Formulary Patient'S Own Med) 1 ea HS PO 07/19/17 22:00 08/18/17 21:59 07/19/17 22:00 1 EA
[2017-07-20] MEDS: SPRINTEC PO SCH (22:00)
[2017-07-20] MEDS ORDERED: SERTRALINE HCL 50 MG TAB PO SCH (22:00)
[2017-07-21 06:55] VITALS: BP_SYST 114; BP_DIAS 72; BP_DIAS 76; PULSE 82; PULSE 90; TEMP 36.8
[2017-07-21] MEDS ORDERED: ZLF50 PO (08:38)
[2017-07-21] MEDS ORDERED: SPR28 PO (08:39)
--- NOTE | 2017-07-21 08:54 | Discharge Instructions ---
Discharge Information Report Includes Report will include the: Discharge Instructions & Summary Admission Admission Date / Time: Jul 17, 2017 at 16:32 Reason for Admission: Major Depression Discharge Discharge Diagnosis / Problem: Major depression, Tylenol overdose Condition at Discharge: Good Discharge Goals Goal(s): Improve function, Improve disease control, Learn about illness, Therapeutic intervention, Specific goals (refer for outpatient care) Activity Recommendations Activity Limitations: per Instructions/Follow-up section . Instructions / Follow-Up Instructions / Follow-Up . SPECIAL CARE INSTRUCTIONS: 1. Follow through with your scheduled aftercare appointments. If unable to keep an appointment, please call to reschedule. 2. Take your medication only as prescribed. Medication should not be changed or stopped without the approval of your doctor. In the event of worsening symptoms or concerns about side effects, contact your doctor immediately. 3. Utilize new healthy coping skills, anger management skills, and stress management skills learned during your hospitalization. Journal feelings and process them with a support person. Identify stressors or situations that may result in relapse, deterioration or inappropriate behaviors and develop a plan to deal with those issues. 4. If your coping skills are ineffective and you are in crisis, contact your outpatient providers for direction. If unable to reach your providers, please call the CAN HELP LINE AT or go to the closest Emergency Room. 5. Avoid alcohol and un-prescribed drugs. 6. You have been provided with the Mental Health Advance Directives Pamphlet for your review. AFTERCARE APPOINTMENTS: * Please call your insurance company prior to your scheduled appointment to confirm your aftercare providers are covered. Take your insurance information to your appointments. . Discharge / Aftercare Planning Psychiatrist: Name: TERE Therapist: Name Of Therapist: TERE . Follow-Up Care Plan for Follow-Up Care: See above. Current Hospital Diet Patient's current hospital diet: Regular Diet Discharge Diet Recommended Diet: Regular Diet Procedures Procedures Performed: No Pending Studies Pending Studies at Discharge: No Medical Emergencies . Who to Call and When: Medical Emergencies: For questions or emergencies related to your hospital stay, please contact the Inpatient Behavioral Health Unit at [phone]. A document preparation specialist is on-call 04/05 for the Behavioral Health Unit for emergencies At any time you feel your situation is an emergency, you may also call 911 immediately. . Non-Emergent Contact Non-Emergency issues call your: Primary Care Provider, Psychiatrist, Therapist Past History Medical & Surgical History: (1) Arthritis Advance Directives Existing Advance Directive: No Do You Have an Existing Mental: No Existing Living Will: No Existing Power of Retail Salesworker: No Advance Directives Info Given: To Pt/S.O. Advance Directives Reason: Declines as Mental Health Visit. Discharge Summary Admission HPI Per the Admitting provider: Last night Reyna took 20 pills of Excedrin in a suicide attempt. Afterwards, she contacted a friend who happened to be with a dorm vice president of procurement who then reported the attempt to the campus police. Acetaminophen level peaked at 60 and she did not require mucomyst but she was admittedly to telemetry overnight. Reyna reports depressive symptoms since middle school but denies any regular treatment. She reports feeling stressed and overwhelmed, particularly due to family stressors. Her grandfather has dementia and her mother is his primary caregiver. Reyna also has a sister who she described as "trash." Her sister's son abuses codeine and Reyna told the boy's father. This led to her sister cutting off all contact with the rest of her family. She performed poorly last year in college and is currently on academic probation. 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 Patient scored 19 on the PHQ-9 endorsing nearly every day for multiple vegetative symptoms of depression. Admission Exam Per the Admitting provider: Please see admission H&P. Consultations None. Hospital Course (1) Major depressive disorder, recurrent episode with anxious distress 07/17-- The patient is admitted to [facility] ([facility] unit) on q 15 min checks (behavioral with suicide precautions) for safety. The patient will participate in group, recreational and milieu therapies and will be offered additional individual and family sessions as clinically appropriate. Defer SSRI start/discussion until tomorrow. 07/18 -Discussed diagnosis and treatment options, including antidepressant medication , behavioral changes (focus on sleep, exercise, good nutrition, avoiding drugs and alcohol, and utilizing her support system) and therapy. She has been reluctant to try therapy as she had a bad experience with it in grade school, but is willing to consider it at this point. Discussed trial of sertraline, reviewed risks, benefits, and common side effects, and gave her an up-to-date patient handout on the medication. We'll start 25 mg tonight, as she would like to take it at bedtime as this is when she takes her oral contraceptive, and can increase to 50 mg tomorrow if tolerated well. -She is refusing to involve her mother in treatment, not wanting to stress her out. Encouraged her to reconsider this. She would like to have a meeting with her boyfriend, who is visiting today. Will ask staff to schedule a meeting with the social worker masters for Thursday. -Will need to meet with the social worker masters on Thursday to coordinate with the [place], and will need referrals for outpatient therapy and psychiatric follow-up. She does not have insurance, so this may need to be through [facility]. 07/19 -Increase sertraline to 50 mg at bedtime tonight. -Patient continues to refuse involvement of her parents, but has a meeting scheduled with her boyfriend of the social worker masters for tomorrow.. -Encouraged her to work on her safety plan, including ways to cope with stress, and encouraged to involve her support network, which she has been reluctant to do. 07/20 -Increase sertraline to 75mg qhs to target mood and anxiety. -Family meeting held with boyfriend. Continues to refuse involvement of mother. -Coordinate with [facility], and refer to [facility] for aftercare. -Work on discharge plans/safety plan. 07/21 -Patient continues to deny suicidal thoughts, and is requesting discharge. Her boyfriend will be picking her up. He is being referred to [facility] for therapy and psychiatric follow-up, as she does not yet have insurance so cannot be referred to the community. She was given a discount card for sertraline ($11) for [facility] pharmacy, as she will have to pay out of pocket for this month's prescription. (2) Tylenol overdose Intentional Excedrin OD in suicide attempt- treated on medical floor. 07/18 - discussed role of safety planning, and encouraged the patient to start work on this. Risk Factors Assessment : Yes /single/: Yes Higher / Fall in social status: Yes Access to guns: No Health problems: No Mental Health Diagnoses: Yes Substance use disorders: No Previous attempt: Yes Family history of suicide: No Previous psychiatric stay: No Hopelessness: No Smoker: No Protective Factors Assessment : No Responsible for young children: No Employed: Yes Stable relationships: Yes Supportive family: No Good rapport with provider: No Absence of risk factors above: Yes (risk factors were mitigated by admission to the inpatient unit, prescribing medication to target depression, educating the patient about her diagnosis and the recommended treatment, involving her in groups and therapy on the unit, encouraging her to involve her outpatient supports (declined to involve family, but family meeting was held with boyfriend ), working on healthy coping skills and to discharge safety plan, and referring her for outpatient therapy and psychiatric services. Her mood has improved here , she has consistently denied suicidal thoughts, has been calm, cooperative, and engaged in her treatment, is willing to follow-up with outpatient providers , and is requesting discharge. As she is no longer at acute risk of harm to herself, she can be managed as an outpatient at this time. She does not have risk factors for harm to others.) Day of Discharge Assessment Hospital course: The patient was started on sertraline, and the dose increased to 75 mg daily at bedtime. She tolerated it well. She attended and participated in groups and therapy on the unit, socialized with peers, and her mood and affect improved. She consistently denied suicidal thoughts throughout her stay, and was able to process the stressors that led to her overdose. She was encouraged to involve her mother in treatment, but declined to do so, and would not sign a release for staff to talk with her, stating she wanted to wait until her mother herself in a couple of weeks when she goes home for her birthday. She stated her mother had a lot of stressful things to deal with, and she did not want to add to it. She did end up calling her sister and telling her that she was in the hospital, and felt she was supportive. Her boyfriend visited daily, and she had a family meeting with him on 07/20/2017. He is one of her primary supports , and usually travels from [place] to [employer] to visit her on weekends. They discussed her stressors leading up to her overdose, including increased irritability due to PMS and disappointment when her boyfriend said he may have to work this weekend. She talked about her difficulties with trust, and her past history of being bullied in elementary and middle school. She talked about her difficulties communicating her needs clearly, and her boyfriend shared that he is often not sure what she wants from him or how he can help. She talked about her self harming behaviors, which date back to elementary school. Although her self injury has decreased, she still engages in these behaviors at times as a way to cope and for release. She confirmed that she has no access to guns or razor blades in her dorm room, and that there are no guns at her mothers home. She talked about her family, that her mother is a single parent and her father has had no contact with her since she was 6 months old. Her mother lost health insurance, and works at a low paying job. She is also caring for the patient's grandfather who has Alzheimer's dementia and a spinal fracture. Despite her mother's financial difficulties, she paid for the patient's college expenses last year. She is also struggling in school and is on academic warning for the semester. Because of that, she lost her financial agent, and had to take out a private loan. She said she wanted to wait to tell her mother about her hospitalization until she has gotten medical assistance in place, and can tell her mother that she has already taken care of everything so that she won't have to worry. 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 She discussed ways to get more local supports, including involvement in various groups at [facility]. She appeared future oriented, and stated she was looking forward to discharge. Day of discharge assessment: Patient states that her mood is "good," and she is looking forward to discharge today. She denies thoughts of harming herself or anyone else, urges to engage in self injury, and is able to review the healthy coping skills she has worked on as well as her discharge safety plan. She states she is still worried about telling her mother about her hospitalization, and is glad that her sister will help her to do that when she goes home for her birthday in a couple of weeks. She is also worried about people asking her where she has been, and that they will post commander her if she tells them the truth. She talked about different ways she can respond to people's questions without revealing information she does not want to reveal. 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 She denies any side effects from medications, and the cost of a month's supply of sertraline was explored, as she does not yet have insurance. She is worried about not getting insurance, but feels she will be able to deal with the situation either way. She is requesting discharge, and denies any safety concerns with leaving the hospital. Well nourished, well developed WF appearing stated age. Casually dressed and adequately groomed. Calm and cooperative. Seated in NAD, with fair eye contact and no abnormal movements. Speech is normal rate, volume, and tone. Mood is "good," and affect is stable and congruent. Thoughts are linear, logical and goal directed. The patient denied suicidal and homicidal ideation and was able to safety plan. No paranoia, delusions, or hallucinations, and did not appear to be responding to internal stimuli. Cognition was grossly intact. Alert and oriented to person, place and time. Intelligence is consistent with level of education. Insight and and judgment are fair. Laboratory Test 07/16/17 18:50 07/16/17 19:54 07/16/17 22:03 07/17/17 00:29 Urine Color YELLOW Urine Appearance CLOUDY Urine pH 7.0 Urine Specific [place] 1.026 Urine Protein NEG Urine Glucose (UA) NEG Urine Ketones NEG Urine Occult Blood TRACE H Urine Nitrite NEG Urine Bilirubin NEG Urine Urobilinogen NEG Urine Leukocyte Esterase LARGE H Urine WBC (Auto) >30 H Urine RBC (Auto) 0-4 Urine Hyaline Casts (Auto) 0 Urine Epithelial Cells (Auto) >30 H Urine Bacteria (Auto) 2+ H Urine Yeast (Auto) Urine Test NEG Urine Opiates Screen NEG Urine Methadone, Qualitative NEG Urine Barbiturates NEG Urine Phencyclidine (PCP) Level NEG Ur Amphetamine/Methamphetamine NEG MDMA (Ecstasy) Screen NEG Urine Benzodiazepines Screen NEG Urine Cocaine Metabolite NEG Urine Marijuana (THC) POS H Urine Marijuana (THC Carboxy Acid) 71 A White Blood Count 9.96 Red Blood Count 4.91 Hemoglobin 15.2 Hematocrit 44.7 Mean Corpuscular Volume 91.0 Mean Corpuscular Hemoglobin 31.0 Mean Corpuscular Hemoglobin Concent 34.0 Platelet Count 366 Mean Platelet Volume 10.2 Neutrophils (%) (Auto) 67.3 Lymphocytes (%) (Auto) 27.2 Monocytes (%) (Auto) 4.7 Eosinophils (%) (Auto) 0.3 Basophils (%) (Auto) 0.2 Neutrophils # (Auto) 6.70 H Lymphocytes # (Auto) 2.71 Monocytes # (Auto) 0.47 Eosinophils # (Auto) 0.03 Basophils # (Auto) 0.02 RDW Standard Deviation 41.3 RDW Coefficient of Variation 12.4 Immature Granulocyte % (Auto) 0.3 Immature Granulocyte # (Auto) 0.03 H Sodium Level 141 Potassium Level 2.8 L Chloride Level 109 H Carbon Dioxide Level 23 Anion Gap 9.0 Blood Urea Nitrogen 10 Creatinine 0.86 Est Creatinine Clear Calc Drug Dose 117.7 Estimated GFR () 113.5 Estimated GFR (Non- 97.9 BUN/Creatinine Ratio 11.7 Random Glucose 92 Calcium Level 9.6 Total Bilirubin 0.2 Direct Bilirubin < 0.1 Aspartate Amino Transferase (AST) 13 L Alanine Aminotransferase (ALT) 18 Alkaline Phosphatase 90 Total Protein 8.2 Albumin 3.7 Thyroid Stimulating Hormone (TSH) 1.380 Salicylates Level 24.1 H 25.2 H 22.7 H Acetaminophen Level 60 H 47 H Ethyl Alcohol mg/dL < 3.0 Test 07/17/17 04:01 White Blood Count 14.14 H Red Blood Count 4.33 Hemoglobin 13.9 Hematocrit 39.0 Mean Corpuscular Volume 90.1 Mean Corpuscular Hemoglobin 32.1 Mean Corpuscular Hemoglobin Concent 35.6 RDW Standard Deviation 40.9 RDW Coefficient of Variation 12.3 Platelet Count 363 Mean Platelet Volume 10.2 Sodium Level 138 Potassium Level 3.3 #L Chloride Level 109 H Carbon Dioxide Level 22 Anion Gap 7.0 Blood Urea Nitrogen 8 Creatinine 0.68 Est Creatinine Clear Calc Drug Dose 147.5 Estimated GFR () 147.0 Estimated GFR (Non- 126.8 BUN/Creatinine Ratio 12.0 Random Glucose 97 Calcium Level 8.6 Total Bilirubin 0.3 Aspartate Amino Transferase (AST) 11 L Alanine Aminotransferase (ALT) 22 Alkaline Phosphatase 77 Total Protein 7.3 Albumin 3.4 Globulin 3.9 Albumin/Globulin Ratio 0.9 Total Time Total Time Spent (min): Greater than 30 minutes Total Time Included: examination of the patient, discharge planning, medication reconciliation Tobacco Cessation at Discharge Smoking Status: Never Smoker FDA approved Prescription: non-smoker
== END 2017-07-21 10:45 | disposition home or self-care (01) | DRG 885 ==
LOC: C.MHU 16:32
PROVIDERS: ADMIT Psychiatry & Neurology Child & Adolescent Psychiatry; ATTEND Psychiatry & Neurology Psychiatry
DX: F33.9 Major depressive disorder, recurrent, unspecified (principal); R45.851 Suicidal ideations